=== PATIENT | female | born 1995 | race American Indian/Alaskan Native ===

== ENCOUNTER 2018-04-25 09:46 | Emergency (ER) | payer OTHER ==
[2018-04-25 11:01] VITALS: BP 112/63
--- NOTE | 2018-04-25 13:42 | Emergency Department Report ---
ED Female HPI - General Chief complaint: Urogenital-Female Stated complaint: VAGINAL ITCH Time Seen by Provider: 04/25/18 13:23 Source: patient Mode of arrival: Ambulatory Limitations: No Limitations - History of Present Illness Initial comments: This is a 23-year-old female that is 30 weeks nontoxic, well nourished in appearance, no acute signs of distress presents to the ED with c/o of vaginal discharge and itching. Patient denies any vaginal pain or swelling. Patient denies any vaginal ulcers or lesions. Patient stated it is whit milky discharge with no foul odor. Patient deneis any vaginal bleeding or abdominal or pelvic pain. Patient denies any nausea, vomiting, chest pain, shortness of breathe, fever, chills, headache, back pain, numbness, tingling, stiff neck. Patient denies any urinary symptoms. Patient denies any allergies or PMH. Patient stated has normal OBGYN appointments. MD Complaint: vaginal discharge Severity scale (0 -10): 0 Improves with: none Worsens with: none Are you Now?: Yes Associated Symptoms: vaginal discharge. denies: vaginal bleeding, abdominal pain, nausea/vomiting, fever/chills, headaches, loss of appetite, dysuria, hematuria, rash, seizure, shortness of breath, syncope, weakness - Related Data Allergies Allergy/AdvReac Type Severity Reaction Status Date / Time No Known Allergies Allergy Unverified 04/25/18 11:01 ED Review of Systems ROS: Stated complaint: VAGINAL ITCH Other details as noted in HPI Constitutional: denies: chills, fever Eyes: denies: eye pain, eye discharge, vision change ENT: denies: ear pain, throat pain Respiratory: denies: cough, shortness of breath, wheezing Cardiovascular: denies: chest pain, palpitations Endocrine: no symptoms reported Gastrointestinal: denies: abdominal pain, nausea, diarrhea Genitourinary: discharge. denies: urgency, dysuria Musculoskeletal: denies: back pain, joint swelling, arthralgia Skin: denies: rash, lesions Neurological: denies: headache, weakness, paresthesias Psychiatric: denies: anxiety, depression Hematological/Lymphatic: denies: easy bleeding, easy bruising ED Physical Exam - General Limitations: No Limitations General appearance: alert, in no apparent distress - Head Head exam: Present: atraumatic, normocephalic - Eye Eye exam: Present: normal appearance Pupils: Present: normal accommodation - ENT ENT exam: Present: normal exam, mucous membranes moist - Neck Neck exam: Present: normal inspection, full ROM - Respiratory Respiratory exam: Present: normal lung sounds bilaterally. Absent: respiratory distress - Cardiovascular Cardiovascular Exam: Present: regular rate, normal rhythm. Absent: systolic murmur, diastolic murmur, rubs, gallop - GI/Abdominal GI/Abdominal exam: Present: soft, normal bowel sounds. Absent: distended, tenderness, guarding, rebound, rigid, diminished bowel sounds - Rectal Rectal exam: Present: deferred - External exam: Present: normal external exam, other (chip separator Antoinette medical manager present during exam). Absent: erythema, swelling, lesions, lacerations, ecchymosis, bleeding Speculum exam: Present: cervical discharge, other (OS closed. chip separator Antoinette medical manager present during exam). Absent: erythema, vaginal discharge, vaginal bleeding, foreign body, tissue, laceration Bi-manual exam: Present: normal bi-manual exam, other (OS closed. chip separator Antoinette medical manager present during exam). Absent: cervical motion tendernes, adnexal tenderness, adnexal mass, uterine enlargement, uterine tenderness - Extremities Exam Extremities exam: Present: normal inspection, full ROM, normal capillary refill - Back Exam Back exam: Present: normal inspection, full ROM. Absent: tenderness, CVA tenderness (R), CVA tenderness (L), paraspinal tenderness, vertebral tenderness - Neurological Exam Neurological exam: Present: alert, oriented X3, normal gait - Psychiatric Psychiatric exam: Present: normal affect, normal mood - Skin Skin exam: Present: warm, dry, intact, normal color. Absent: rash ED Course Vital Signs 04/25/18 10:57 Temperature 98.1 F Pulse Rate 90 Respiratory 16 Rate Blood Pressure 112/63 O2 Sat by Pulse 99 Oximetry - Reevaluation(s) Reevaluation #1: 04/25/18 13:42 Patient is speaking in full sentences with no signs of distress noted. ED Medical Decision Making - Medical Decision Making This is a 31-year-old female that presents with vaginal discharge. Patient is stable was examined by me. There is no abdominal tenderness. No pelvic pain. UA obtained. Wet prep obtained within normal limits. Patient staetd she is not concerned about STD and does not want to be tested for this. Patient was instructed to Follow-up with a primary care/OBGYN doctor in 3-5 days or if symptoms worsen and continue return to emergency room as soon as possible. At time of discharge, the patient does not seem toxic or ill in appearance. No acute signs of distress noted. Patient agrees to discharge treatment plan of care. No further questions noted by the patient. Critical care attestation.: If time is entered above; I have spent that time in minutes in the direct care of this critically ill patient, excluding procedure time. ED Disposition Clinical Impression: Vaginal discharge Disposition: DC-01 TO HOME OR SELFCARE Is pt being admited?: No Does the pt Need Aspirin: No Condition: Stable Additional Instructions: Follow-up with a primary care/OBGYN doctor in 3-5 days or if symptoms worsen and continue return to emergency room as soon as possible. Referrals: AISSATOU NELSON MD [Primary Care Provider] - 3-5 Days MAK BAGLEY MD [Referring] - 3-5 Days [facility] [Provider Group] - 3-5 Days [facility] [Provider Group] - 3-5 Days Forms: Work/School Release Form(ED)
[2018-04-25 14:51] LABS: Bacteria,Urine 2+ /HPF (Negative); Bilirubin,Urine NEG (Negative); Blood,Urine NEG (Negative); Color,Urine Yellow (Yellow); Hyaline Casts,Urine 1 /LPF; Mucus,Urine 1+ /HPF
== END 2018-04-25 15:16 | disposition home or self-care (01) ==
LOC: ED 09:46
DX: O26.893 Other specified pregnancy related conditions, third trimester (principal); N89.8 Other specified noninflammatory disorders of vagina; Z3A.30 30 weeks gestation of pregnancy
CPT/HCPCS: 81001; 87210

== ENCOUNTER 2019-08-31 19:34 | Outpatient (CLI) | payer OTHER ==
[2019-08-31] MEDS ORDERED: fentaNYL 100 MCG/2 ML INJ IV ONE (21:18)
[2019-08-31] MEDS ORDERED: LACTATED RINGERS 1,000 ML IV ONE (21:18)
[2019-08-31] MEDS ORDERED: LACTATED RINGERS 1,000 ML ONE (21:23)
[2019-08-31 22:04] VITALS: BP 108/63
== END 2019-08-31 22:20 | disposition home or self-care (01) ==
LOC: TRG 19:34
PROVIDERS: ATTEND Obstetrics & Gynecology
DX: O26.893 Other specified pregnancy related conditions, third trimester (principal); R51 Headache; O62.9 Abnormality of forces of labor, unspecified; Z3A.37 37 weeks gestation of pregnancy
CPT/HCPCS: 59025; 96361; 96374; J3010; J7120; 96360

== ENCOUNTER 2019-09-12 16:10 | Outpatient (CLI) | payer OTHER ==
[2019-09-12 16:45] VITALS: BP 117/70
[2019-09-12 17:35] LABS: Bilirubin,Urine NEG (Negative); Blood,Urine NEG (Negative); Color,Urine Yellow (Yellow); Mucus,Urine FEW /HPF; Protein,Urine <15 mg/dL mg/dL (Negative)
== END 2019-09-12 18:04 | disposition home or self-care (01) ==
LOC: TRG 16:10
PROVIDERS: ATTEND Obstetrics & Gynecology
DX: O42.92 Full-term premature rupture of membranes, unspecified as to length of time between rupture and onset of labor (principal); O26.893 Other specified pregnancy related conditions, third trimester; R25.2 Cramp and spasm; Z3A.39 39 weeks gestation of pregnancy
CPT/HCPCS: 81001

== ENCOUNTER 2019-09-19 08:16 | Observation (INO) | payer OTHER ==
[2019-09-19] MEDS ORDERED: LACTATED RINGERS 1,000 ML IV SCH (10:00)
[2019-09-19 10:09] LABS: Hematocrit 31.3 % (30.3-42.9); Hemoglobin 10.8 gm/dl (10.1-14.3); Mean Corpuscular HGB Conc 34 % (30-34); Mean Corpuscular Volume 88 fl (79-97); Platelet Count 297 K/mm3 (140-440); Red Blood Count 3.56 M/mm3 (3.65-5.03); Red Cell Distribution Width 14.1 % (13.2-15.2)
[2019-09-19 12:19] VITALS: BP 106/64
--- NOTE | 2019-09-19 13:59 | Ultrasound Report ---
Limited OB Ultrasound Biophysical profile HISTORY: wellness. TECHNIQUE: Grayscale and color imaging performed. COMPARISON: None FINDINGS: There is a single intrauterine gestation which is cephalic in presentation. ANNA is 18 cm wh ich is normal. Heart rate is 132 bpm. On biophysical profile, the fetus received a score of 2 out of 2 for breathing movement, movement, po sture/tone, and ANNA. Total score was 8 out of 8. IMPRESSION: 1. Single viable intrauterine gestation as above. 2. Normal BPP. Signer Name: Mookie Wright MD Signed: 09/19/2019 1:54 PM Workstation Name: [id number]
== END 2019-09-19 12:40 | disposition home or self-care (01) ==
LOC: LD 08:16 → INTOOBSV 08:16
PROVIDERS: ADMIT Obstetrics & Gynecology; ATTEND Obstetrics & Gynecology
DX: O75.9 Complication of labor and delivery, unspecified (principal); Z3A.40 40 weeks gestation of pregnancy
CPT/HCPCS: 36415; 76815; 76819; 85027; 86592; 86850; 86900; 86901; G0378; G0379

== ENCOUNTER 2019-09-22 20:29 | Inpatient (IN) | payer OTHER ==
[2019-09-22] MEDS ORDERED: LIDOCAINE (2%) 20 MG/1 ML VIAL 20 ML MDV INFILTRATI ONE (21:34)
[2019-09-22] MEDS ORDERED: ePHEDrine SULFATE 50 MG/1 ML INJ IV PRN (21:34)
[2019-09-22] MEDS ORDERED: BUTORPHANOL 2 MG/1 ML INJ IV PRN (21:34)
[2019-09-22] MEDS ORDERED: TERBUTALINE 1 MG/1 ML INJ IVP PRN (21:34)
[2019-09-22] MEDS ORDERED: TERBUTALINE 1 MG/1 ML INJ SUB-Q PRN (21:34)
[2019-09-22] MEDS ORDERED: fentaNYL 100 MCG/2 ML INJ IV PRN (21:34)
[2019-09-22] MEDS ORDERED: MINERAL OIL 30 ML ORAL LIQD PO PRN (21:34)
[2019-09-22 21:42] LABS: Hematocrit 32.1 % (30.3-42.9); Hemoglobin 10.5 gm/dl (10.1-14.3); Mean Corpuscular HGB Conc 33 % (30-34); Mean Corpuscular Volume 89 fl (79-97); Platelet Count 309 K/mm3 (140-440); Red Blood Count 3.61 M/mm3 (3.65-5.03); Red Cell Distribution Width 14.7 % (13.2-15.2)
[2019-09-22] MEDS ORDERED: ZOLPIDEM 5 MG TAB PO PRN (21:42)
[2019-09-22] MEDS ORDERED: OXYTOCIN DRIP 30 UNITS/500 ML BAG IV SCH ×2 (22:00)
[2019-09-22] MEDS ORDERED: OXYTOCIN 20 UNIT/1000ML DRIP 20 UNITS/1,000 ML BAG IV SCH (22:00)
[2019-09-22] MEDS: LACTATED RINGERS 1,000 ML IV SCH (22:02)
[2019-09-23] MEDS: LACTATED RINGERS 1,000 ML IV SCH ×2 (05:45→13:05)
[2019-09-23] MEDS ORDERED: OXYTOCIN DRIP 30 UNITS/500 ML BAG IV SCH (10:00)
--- NOTE | 2019-09-23 11:12 | History and Physical Report ---
History of Present Illness Date of examination: 09/23/19 Date of admission: 09/22/19 20:35 Chief complaint: IOL for post-dates History of present illness: 24 yo, @ 41.1 wks, initiated care with [facility] at 15.1 wks gestation. Her has been complicated by elevated AST of 171, BMI of 34, enlarged thyroid and H/As. She presented to [facility] on the evening of 09/22/2019 for IOL secondary to post-date . She reports +FM. Denies VB or LOF. Labs: O+, antibody negative; PAP normal; Rubella immune; VDRL non-reactive; HBsAg negative; HIV negative; varicella immune; GC/Chlamydia/Trich negative; Vit D 13.3; MSAFP/Multiple markers negative; Hgb A1c - 4.9; 1 hr gtt - 107; 24 hr urine protein - 259; GBS negative. Past History Past Medical History: other (Elevated AST) Past Surgical History: no surgical history Family/Genetic History: diabetes (Type 2 - MGM) Social history: , lives with family, full code. denies: smoking, alcohol abuse, prescription drug abuse, IV drug use - Obstetrical History Expected Date of Delivery: 09/15/19 Actual Gestation: 41 Week(s) 1 Day(s) : 2 Para: 1 Hx # Term Pregnancies: 1 Number of Pregnancies: 0 Spontaneous Abortions: 0 Induced : 0 Number of Living Children: 1 #1 Infant Gender: Male year: 2,[birth year] Birthweight: 3.076 kg Method of Delivery: Vaginal Gestational age at delivery: 40 Complications: none Medications and Allergies Allergies Allergy/AdvReac Type Severity Reaction Status Date / Time No Known Allergies Allergy Verified 08/31/19 21:21 Active Meds: Active Medications Butorphanol Tartrate (Stadol) 2 mg IV Q2H PRN PRN Reason: Pain , Severe (7-10) Ephedrine Sulfate (Ephedrine Sulfate) 10 mg IV Q2M PRN PRN Reason: Hypotension Fentanyl (Sublimaze) 100 mcg IV Q2H PRN PRN Reason: Labor Pain Oxytocin/Sodium Chloride (Pitocin/Ns 20 Unit/1000ml Drip) 20 units in 1,000 mls @ 125 mls/hr IV DIRECT JOAQUIN Lactated Ringer's (Lactated Ringers) 1,000 mls @ 125 mls/hr IV DIRECT JOAQUIN Last Admin: 09/23/19 05:45 Dose: 125 mls/hr Documented by: Oxytocin/Sodium Chloride (Pitocin/Ns 30 Unit/500ml) 30 units in 500 mls @ 4 mls/hr IV TITR JOAQUIN; Protocol Mineral Oil (Mineral Oil) 30 ml PO QHS PRN PRN Reason: Constipation Terbutaline Sulfate (Brethine) 0.25 mg SUB-Q ONCE PRN PRN Reason: Hyperstimulation/Hypertonicity Terbutaline Sulfate (Brethine) 0.25 mg IVP ONCE PRN PRN Reason: Hyperstimulation/Hypertonicity Zolpidem Tartrate (Ambien) 5 mg PO QHS PRN PRN Reason: Sleep Last Admin: 09/22/19 22:54 Dose: 5 mg Documented by: Review of Systems All systems: negative Genitourinary: contractions - Vital Signs Vital signs: Vital Signs Temp Pulse Resp BP 97.8 F 98 H 18 117/71 09/22/19 20:51 09/22/19 20:51 09/22/19 20:51 09/22/19 20:51 Temp Pulse Resp BP Pulse Ox 97.8 F 76 18 101/55 09/22/19 20:51 09/23/19 10:47 09/22/19 20:51 09/23/19 10:47 - Physical Exam Breasts: Positive: normal Cardiovascular: Regular rate Lungs: Positive: Normal air movement Abdomen: Positive: other (gravid) Genitourinary (Female): Positive: normal external genitalia, normal perenium Vagina: Positive: normal moisture Uterus: Positive: enlarged (S=D) Anus/Rectum: Positive: normal perianal skin Extremities: Positive: normal Deep Tendon Reflex Grade: Normal +2 - Obstetrical FHR: category 1 Uterine Contraction Monitor Mode: External Cervical Dilatation: 3 Cervical Effacement Percentage: 65 station: -2 Uterine Contraction Frequency (min): 3-5 Uterine Contraction Pattern: Irregular Uterine Tone Measurement Phase: Resting Uterine Contraction Intensity: Mild Results Result Diagrams: 09/22/19 21:00 Abnormal lab results 09/22/19 Range/Units 21:00 RBC 3.61 L (3.65-5.03) M/mm3 All other labs normal. Assessment and Plan - Patient Problems (1) Encounter for induction of labor Current Visit: Yes Status: Acute Plan to address problem: Admit to L & D unit AROM clear fluids, tolerated well Increase Pitocin as tolerated Pain meds as tolerated Anticipate (2) Post-dates Current Visit: Yes Status: Acute (3) Elevated AST (SGOT) Current Visit: Yes Status: Acute (4) Obesity affecting Current Visit: Yes Status: Acute
[2019-09-23] MEDS ORDERED: PROMETHAZINE 25 MG TAB PO PRN (15:38)
[2019-09-23] MEDS ORDERED: PROMETHAZINE 25 MG RECT SUPP PR PRN (15:38)
[2019-09-23] MEDS ORDERED: oxyCODONE /ACETAMINOPHEN 5-325MG TAB PO PRN (15:38)
[2019-09-23] MEDS ORDERED: WITCH HAZEL/ GLYCERIN PAD TP PRN (15:38)
[2019-09-23] MEDS ORDERED: diphenhydrAMINE 25 MG CAP PO PRN (15:38)
[2019-09-23] MEDS ORDERED: MAGNESIUM HYDROXIDE (MOM) ORAL LIQD UDC PO PRN (15:38)
[2019-09-23] MEDS ORDERED: LANOLIN/ZINC/DIMETHICONE (LANSINOH) 7 GM TP PRN (15:38)
[2019-09-23] MEDS ORDERED: ONDANSETRON 4 MG/2 ML INJ IV PRN (15:38)
--- NOTE | 2019-09-23 15:48 | Procedure Note ---
OB Delivery Note - Delivery Date of Delivery: 09/23/19 (1516) Surgeon: ANDRY MORGAN (CNM) Estimated blood loss: 200cc - Vaginal Delivery presentation: vertex Delivery position: OA (SHIRA) Intrapartum events: none Delivery induction: oxytocin (low dose) Delivery augmentation: rupture of membranes (AROM @1145) Delivery monitor: internal FHT, internal uterine Route of delivery: Delivery placenta: spontaneous (1528) Delivery cord: nuchal cord Episiotomy: none Delivery laceration: none Anesthesia: none Delivery comments: of viable, alert, crying infant, placed directly to maternal abdomen. Cord double clamped and cut by FOB after cessation of pulsation. Cord blood collected, sent to lab. Placenta spontaneously delivered, nichols, disposed per hospital policy. Uterus firm @U, hemostasis maintained. Perineum intact. Mother and baby safe, stable and bonding well. - Infant A at 1 minute: 8 at 5 minutes: 9 Infant Gender: Male (Weight: 3545 gms (7lbs 13ozs) 20 inches)
[2019-09-24] MEDS: IBUPROFEN 600 MG TAB PO SCH ×5 (06:03→21:15)
[2019-09-24 06:44] LABS: Hematocrit 34.4 % (30.3-42.9); Hemoglobin 11.1 gm/dl (10.1-14.3)
[2019-09-24] MEDS: FERROUS SULFATE 325 MG TAB PO SCH (08:51)
[2019-09-24] MEDS: PRENATAL VIT27-FE FUMARATE-FOLIC ACID VIT TAB PO SCH (08:51)
--- NOTE | 2019-09-24 09:58 | Progress Note ---
Assessment and Plan A: day 1 S/P . P: Continue current orders. Anticipate discharge home tomorrow if patient continues to do well. Subjective - Subjective Date of service: 09/24/19 Principal diagnosis: day 1 S/P Interval history: day 1 S/P . Doing well. Reports small amount of lochia. Voiding without difficulty, ambulating well, tolerating a regular diet, passing gas. Patient denies headache, chest pain, cough, shortness of breath, abdominal pain, leg pain, nausea or vomiting, or heavy bleeding. Patient reports: appetite normal, voiding normally, pain well controlled, flatus, ambulating normally, no dizzy ambulation, no nauseated [place]: doing well Objective - Vital Signs Latest vital signs: Vital Signs Temp Pulse Resp BP BP Pulse Ox 09/24/19 08:03 97.8 F 67 18 108/71 99 09/24/19 07:03 18 09/24/19 06:03 18 09/24/19 05:52 98.4 F 66 16 138/80 99 09/24/19 00:00 18 09/23/19 23:22 99.1 F 95 H 20 105/53 98 09/23/19 20:02 98.9 F 75 20 129/81 99 09/23/19 18:00 97.9 F 91 H 18 121/73 97 09/23/19 17:10 91 H 125/68 09/23/19 16:55 94 H 117/59 09/23/19 16:40 88 125/77 09/23/19 16:25 95 H 119/73 09/23/19 16:10 88 121/74 09/23/19 15:55 102 H 133/83 09/23/19 15:40 101 H 126/74 09/23/19 15:33 104 H 136/69 09/23/19 10:47 76 101/55 Intake and Output 09/23/19 09/24/19 09/24/19 23:59 07:59 15:59 Intake Total 120 480 240 Balance 120 480 240 Intake: Oral 120 Intake, Free Water 480 240 Other: Total, Intake Amount 120 # Voids Void 1 1 1 Estimated Blood Loss 200 - Exam Abdomen: Present: normal appearance, soft. Absent: distention, tenderness, guarding, rigidity Uterus: Present: normal, firm, fundal height below umbilicus. Absent: bogginess, tenderness Extremities: Present: normal. Absent: tenderness
[2019-09-25] MEDS: PRENATAL VIT27-FE FUMARATE-FOLIC ACID VIT TAB PO SCH (10:23)
[2019-09-25] MEDS: FERROUS SULFATE 325 MG TAB PO SCH (10:23)
--- NOTE | 2019-09-25 10:24 | Progress Note ---
Assessment and Plan A: day 2 S/P . P: Discharge patient home today. Discussed with patient discharge instructions and warning signs in detail. Advised patient to avoid intercourse, lifting, housework for 6 weeks. Advised patient to continue taking her vitamin at home. Advised patient to follow up at [facility] office in 6 weeks for exam. Patient voiced understanding of all instructions. Subjective - Subjective Date of service: 09/25/19 Principal diagnosis: day 2 S/P Interval history: day 2 S/P . Patient desires discharge today. Doing well. Reports small amount of lochia. Voiding without difficulty, ambulating well, tolerating a regular diet, passing gas. Patient denies headache, chest pain, cough, shortness of breath, abdominal pain, leg pain, nausea or vomiting, or heavy bleeding. Patient reports: appetite normal, voiding normally, pain well controlled, flatus, ambulating normally, no dizzy ambulation, no nauseated : doing well Objective - Vital Signs Latest vital signs: Vital Signs Temp Pulse Resp BP Pulse Ox 09/25/19 08:43 97.8 F 71 18 118/69 98 09/24/19 23:58 98.2 F 75 20 107/72 97 09/24/19 13:38 98.2 F 70 18 113/77 100 Intake and Output 09/24/19 09/25/19 09/25/19 23:59 07:59 15:59 Intake Total 360 Balance 360 Intake: Intake, Free Water 360 Other: # Voids Void 1 - Exam Cardiovascular: Present: Regular rate, Normal S1, Normal S2, No murmurs Lungs: Present: Clear to auscultation Abdomen: Present: normal appearance, soft. Absent: distention, tenderness, guarding, rigidity Uterus: Present: normal, firm, fundal height below umbilicus. Absent: bogginess, tenderness Extremities: Present: normal. Absent: tenderness, edema
--- NOTE | 2019-09-25 10:28 | Discharge Summary ---
Providers - Providers Date of Admission: 09/22/19 20:35 Date of discharge: 09/25/19 Attending physician: EDUARDO MCCULLOUGH MD Primary care physician: EDUARDO MCCULLOUGH MD Hospitalization Reason for admission: active labor Delivery: Episiotomy: none Laceration: none Other procedures: none complications: none Discharge diagnosis: IUP at term delivered baby: male Pertinent studies: Labs Hospital course: Normal hospital course. Condition at discharge: Good Disposition: DC-01 TO HOME OR SELFCARE - Discharge Diagnoses (1) Term delivered Status: Acute Plan - Provider Discharge Summary Activity: routine, no sex for 6 weeks, no heavy lifting 4 weeks, no strenuous exercise Diet: routine Instructions: routine Additional instructions: Continue taking your vitamins at home. Call your doctor immediately for: * Fever > 100.5 * Heavy vaginal bleeding ( >1 pad per hour) * Severe persistent headache * Shortness of breath * Reddened, hot, painful area to leg or breast - Follow up plan Follow up: EDUARDO MCCULLOUGH MD [Primary Care Provider] - 6 Weeks
[2019-09-25] MEDS: IBUPROFEN 600 MG TAB PO SCH (12:44)
[2019-09-25 15:49] VITALS: BP 108/71
== END 2019-09-25 15:05 | disposition home or self-care (01) | DRG 775 ==
LOC: TRG 20:29 → LD 20:35 → OB 09-23 18:04
PROVIDERS: ADMIT Obstetrics & Gynecology; ATTEND Obstetrics & Gynecology
PROC: 10E0XZZ Delivery of Products of Conception, External Approach (ICD-10-PCS; principal; 2019-09-23)
PROC: 3E033VJ Introduction of Other Hormone into Peripheral Vein, Percutaneous Approach (ICD-10-PCS; 2019-09-23)
DX: O48.0 Post-term pregnancy (principal); Z3A.41 41 weeks gestation of pregnancy; Z37.0 Single live birth; Z83.3 Family history of diabetes mellitus; O99.214 Obesity complicating childbirth; E66.9 Obesity, unspecified; O69.81X0 Labor and delivery complicated by cord around neck, without compression, not applicable or unspecified
CPT/HCPCS: 36415; 76815; 76819; 85014; 85018; 85027; 86592; 86850; 86900; 86901; G0378; G0379; J2590; J3010; J7120